=== PATIENT | female | born 1945 | race Caucasian/White ===

== ENCOUNTER 2022-03-23 19:42 | Observation (INO) | payer BC, MEDICARE ==
[~2022-03-23] VITALS: Ht 157.5 cm; Wt 57.7 kg
[2022-03-23 21:03] LABS: BASO # 0.1 10^3/uL (0.0-0.2); BASO % 1.1 % (0.0-1.0); EOS # 0.3 10^3/uL (0.0-0.5); EOS % 5.2 % (0.0-3.0); HEMATOCRIT 39.9 % (36.0-47.0); LYMPH # 1.7 10^3/uL (1.5-5.0); LYMPH % 26.2 % (24.0-44.0); MEAN CORPUSCULAR HEMOGLOBIN 29.7 pg (27.0-33.0); MEAN CORPUSCULAR HGB CONC 32.6 g/dl (32.0-36.5); MEAN CORPUSCULAR VOLUME 91.3 fl (80.0-96.0); MONO % 15.5 % (2.0-8.0); NEUTROPHILS # 3.3 10^3/uL (1.5-8.5); NEUTROPHILS % 51.4 % (36.0-66.0); PLATELET COUNT, AUTOMATED 367 10^3/uL (150-450); RED BLOOD COUNT 4.37 10^6/uL (4.00-5.40); WHITE BLOOD COUNT 6.3 10^3/uL (4.0-10.0)
[2022-03-23 21:07] LABS: INR 0.84; PROTHROMBIN TIME 11.9 SECONDS (12.7-14.5)
[2022-03-23 21:19] VITALS: BP 122/64
[2022-03-23 21:34] LABS: BLOOD UREA NITROGEN 17 MG/DL (7-18); CALCIUM LEVEL 9.2 MG/DL (8.8-10.2); CARBON DIOXIDE LEVEL 27 MEQ/L (21-32); CHLORIDE LEVEL 108 MEQ/L (98-107); CREATININE FOR GFR 0.88 MG/DL (0.55-1.30); GLOMERULAR FILTRATION RATE > 60.0 (>39); GLUCOSE, FASTING 124 MG/DL (70-100); POTASSIUM SERUM 4.2 MEQ/L (3.5-5.1); SODIUM LEVEL 141 MEQ/L (136-145)
[2022-03-23 21:37] LABS: CK-MB VALUE MASS 2.5 NG/ML (<3.6); CPK CREATINE PHOSPHOKINASE 114 U/L (26-192); MB/CK RELATIVE INDEX 2.19 (< OR =4)
[2022-03-23 22:24] LABS: RSV AMPLIFICATION NEGATIVE (NEGATIVE)
[2022-03-24] MEDS ORDERED: MEDR1TAB2 PO (00:40)
[2022-03-24] MEDS ORDERED: SERT50TA29 PO (00:40)
[2022-03-24] MEDS ORDERED: MONT10TA97 PO (00:40)
[2022-03-24] MEDS ORDERED: SIMV20TA22 PO (00:40)
[2022-03-24] MEDS ORDERED: BUDE10.7 INH (00:40)
[2022-03-24] MEDS ORDERED: XALA0.007 OU (00:40)
[2022-03-24] MEDS ORDERED: DYMI137S (00:40)
[2022-03-24] MEDS ORDERED: SYNT112T2 PO (00:40)
[2022-03-24] MEDS ORDERED: ALBU8.5H INH (00:40)
[2022-03-24] MEDS ORDERED: ESTR25TD TD (00:40)
[2022-03-24] MEDS ORDERED: ASPI-161 PO (00:41)
[2022-03-24] MEDS ORDERED: VITMTA PO (00:41)
[2022-03-24] MEDS ORDERED: CYAN100050 PO (00:41)
[2022-03-24] MEDS ORDERED: K2 P1TAB PO (00:41)
[2022-03-24] MEDS ORDERED: FERR1TAB8 PO (00:41)
[2022-03-24] MEDS ORDERED: HOME MED LIST COMPLETE! XX SCH (00:45)
[2022-03-24] MEDS ORDERED: ASPIRIN 81 MG CHEW TABLET PO ONE (01:00)
[2022-03-24 01:49] VITALS: BP 120/71
[2022-03-24 06:00] VITALS: BP 125/67
[2022-03-24 06:55] LABS: CHOLESTEROL RISK RATIO 2.218 (<5)
[2022-03-24] MEDS ORDERED: ISOVUE-370 76% 100ML VIAL As Ordered ONE (08:25)
[2022-03-24] MEDS ORDERED: SERTRALINE HCL 50 MG TAB PO SCH (09:00)
[2022-03-24] MEDS ORDERED: ASPIRIN ENTERIC 325 MG TAB PO SCH (09:00)
[2022-03-24] MEDS ORDERED: SIMVASTATIN 40 MG TAB PO SCH (09:00)
[2022-03-24] MEDS ORDERED: ATORVASTATIN 20 MG TAB PO SCH (09:00)
[2022-03-24] MEDS ORDERED: MULTIVITAMINS/MINERALS THERAP 1 TAB PO SCH (09:00)
[2022-03-24] MEDS ORDERED: MONTELUKAST 10 MG TAB PO SCH (09:00)
[2022-03-24] MEDS ORDERED: ENOXAPARIN 30MG/0.3ML SYRINGE (J1650 PER 10MG) SC SCH (09:00)
[2022-03-24] MEDS ORDERED: diphenhydrAMINE 50MG/ML VIAL (J1200) As Ordered ONE (09:09)
[2022-03-24] MEDS ORDERED: methylPREDNISolone 125MG 2ML VIAL As Ordered ONE (09:09)
[2022-03-24] MEDS ORDERED: diphenhydrAMINE 50MG/ML VIAL (J1200) IV ONE (09:15)
[2022-03-24] MEDS ORDERED: methylPREDNISolone 125MG 2ML VIAL IV ONE (09:15)
[2022-03-24] MEDS ORDERED: FAMOTIDINE 20MG/2ML VIAL IV ONE (09:15)
[2022-03-24 10:45] VITALS: BP_SYST 170; BP_SYST 184; BP_DIAS 74; BP_DIAS 80
[2022-03-24 11:00] VITALS: BP 184/74
[2022-03-24 14:00] VITALS: BP_SYST 122; BP_SYST 146; BP_DIAS 60; BP_DIAS 63
[2022-03-24] MEDS ORDERED: ALBUTEROL 90 MCG/ACT 8GM HFA INHALER INH PRN (14:50)
[2022-03-24] MEDS ORDERED: ASPI32ECTA PO (15:25)
[2022-03-24] MEDS ORDERED: ASPI81CH33 PO (15:29)
[2022-03-24] MEDS ORDERED: LATANOPROST 0.005% OPHTH SOLN 2.5 ML OU SCH (21:00)
[2022-03-25] MEDS ORDERED: LEVOTHYROXINE 112MCG TABLET (0.112MG) PO SCH (06:00)
[2022-03-25] MEDS ORDERED: SIMVASTATIN 40 MG TAB PO SCH (21:00)
== END 2022-03-24 16:48 | disposition home or self-care (01) ==
LOC: M ED 19:42 → M ED INP 19:43 → M MSPAV 03-24 01:37
PROVIDERS: ADMIT Internal Medicine; ATTEND Internal Medicine
DX: G45.4 Transient global amnesia (principal); R91.8 Other nonspecific abnormal finding of lung field; E78.5 Hyperlipidemia, unspecified; D50.9 Iron deficiency anemia, unspecified; E03.9 Hypothyroidism, unspecified; E78.00 Pure hypercholesterolemia, unspecified; F32.A Depression, unspecified; E53.8 Deficiency of other specified B group vitamins; R51.9 Headache, unspecified; Z82.3 Family history of stroke; J98.11 Atelectasis; Z88.4 Allergy status to anesthetic agent; Z79.899 Other long term (current) drug therapy; Z79.82 Long term (current) use of aspirin; Z79.51 Long term (current) use of inhaled steroids; Z79.890 Hormone replacement therapy; Z87.891 Personal history of nicotine dependence
CPT/HCPCS: 36415; 70450; 70496; 70498; 71045; 80048; 80061; 82550; 82553; 84484; 85025; 85610; 87631; 93005; 93041; 93306; 94760; 96372; 96374; 96375; 99285; J1200; J1650; J2930; Q9967